=== PATIENT | female | born 1945 | race Two or more races ===

== ENCOUNTER → 2016-10-25 | Outpatient (CLI) | payer BC | LOC: BRMIMAGING 08:43 | PROVIDERS: ATTEND Physician Assistant Medical | DX: Z12.31 Encounter for screening mammogram for malignant neoplasm of breast (principal); M81.0 Age-related osteoporosis without current pathological fracture; Z85.3 Personal history of malignant neoplasm of breast; Z90.12 Acquired absence of left breast and nipple | CPT/HCPCS: G0202-52 ==

== ENCOUNTER → 2017-05-29 | Outpatient (CLI) | payer BC | LOC: BRMIMAGING 11:26 → EDSTATUS 11:27 | PROVIDERS: ATTEND Physician Assistant Medical | DX: M54.5 Low back pain (principal); M51.26 Other intervertebral disc displacement, lumbar region; M41.9 Scoliosis, unspecified | CPT/HCPCS: 72114-PO; 72202-PO ==